=== PATIENT | male | born 1970 | race Caucasian/White ===

== ENCOUNTER 2016-08-19 18:06 | Inpatient (IN) | payer MEDICAID ==
[~2016-08-19] VITALS: Ht 172.7 cm; Wt 61.5 kg
[2016-08-19] MEDS ORDERED: INSU100V8 SQ (18:27)
[2016-08-19] MEDS ORDERED: GLIP5TAB10 PO (18:27)
[2016-08-19] MEDS ORDERED: LISI2.5T PO (18:27)
[2016-08-19] MEDS ORDERED: LISI5TAB7 PO (18:27)
[2016-08-19] MEDS ORDERED: INSU100C SQ-INSULIN (18:27)
[2016-08-19] MEDS ORDERED: SODIUM CHLORIDE 0.9% 1,000ML IVBOLUS ONE ×3 (18:30→19:30)
[2016-08-19] MEDS ORDERED: SODIUM CHLORIDE FLUSH 10ML SYR IVF ONE (18:30)
[2016-08-19 18:51] LABS: ASPARTATE AMINO TRANSFERASE 16 U/L (15-37); BLOOD UREA NITROGEN 42 mg/dL (7-18)
[2016-08-19 18:52] LABS: PH, VENOUS 6.891 pH (7.320-7.420)
[2016-08-19 19:01] LABS: DIFF TOTAL CELLS COUNTED 100 CELL DIFF
[2016-08-19 19:03] LABS: VERIFY COUNTS? YES
[2016-08-19] MEDS ORDERED: SODIUM BICARBONATE 1 MEQ/ML, 50ML VIAL ONE (19:14)
[2016-08-19] MEDS ORDERED: CALCIUM CHLORIDE 10%, 10ML SYR ONE (19:15)
[2016-08-19] MEDS ORDERED: REGULAR INSULIN 62.5 UNITS in SODIUM CHLORIDE 0.9% 249.375 ML IV PRN (19:30)
[2016-08-19] MEDS ORDERED: CALCIUM CHLORIDE 10%, 10ML SYR IVPush ONE (19:30)
[2016-08-19] MEDS ORDERED: PIPERACILLIN/TAZO/PMX 4.5GM 100 ML IVPB ONE (19:30)
[2016-08-19] MEDS ORDERED: SODIUM BICARB 8.4%, 50ML SYRINGE IVPush ONE (19:30)
[2016-08-19] MEDS ORDERED: SODIUM CHLORIDE 0.9% 1,000 ML IV ONE (20:18)
[2016-08-19] MEDS ORDERED: SODIUM CHLORIDE FLUSH 10ML SYR IVF PRN (20:30)
[2016-08-19] MEDS ORDERED: SODIUM CHLORIDE 0.9% 1,000 ML IV SCH (20:37)
[2016-08-19] MEDS ORDERED: TRAZODONE 50MG TABLET PO PRN (21:00)
[2016-08-19] MEDS ORDERED: BISACODYL 10 MG SUPP PR PRN (21:00)
[2016-08-19] MEDS: LISINOPRIL 5 MG TABLET PO SCH (21:00)
[2016-08-19] MEDS ORDERED: ACETAMINOPHEN 325 MG TABLET PO PRN (21:00)
[2016-08-19] MEDS ORDERED: ONDANSETRON 2MG/ML, 2ML IVPush PRN (21:00)
[2016-08-19] MEDS ORDERED: LABETALOL 5MG/ML, 20ML IVPush PRN (21:00)
[2016-08-19] MEDS ORDERED: DOCUSATE 100 MG CAPSULE PO PRN (21:00)
[2016-08-19] MEDS ORDERED: POLYETHYLENE GLYCOL 17 GM PACKET PO PRN (21:00)
[2016-08-19] MEDS: NICOTINE 14MG/24 HR PATCH.TD24 TD SCH (21:00)
[2016-08-19 22:20] VITALS: BP 121/81
[2016-08-19] MEDS: HEPARIN 5,000 UNITS/ML, 1ML SQ SCH (22:33)
[2016-08-19 22:40] LABS: BLOOD UREA NITROGEN 36 mg/dL (7-18)
[2016-08-19 22:50] VITALS: BP 119/79
[2016-08-20] MEDS: D5%-0.45% NACL 1,000 ML IV SCH ×2 (00:53→06:04)
[2016-08-20] MEDS ORDERED: REGULAR INSULIN 62.5 UNITS in SODIUM CHLORIDE 0.9% 249.375 ML IV PRN ×2 (01:00→07:07)
[2016-08-20 01:57] LABS: BLOOD UREA NITROGEN 31 mg/dL (7-18)
[2016-08-20 04:00] VITALS: BP 100/64
[2016-08-20 05:00] LABS: BLOOD UREA NITROGEN 27 mg/dL (7-18)
[2016-08-20 05:11] LABS: ASPARTATE AMINO TRANSFERASE 15 U/L (15-37)
[2016-08-20 05:56] LABS: PATH.CAST-FLAG NOT PRESENT; SPERM-FLAG NOT PRESENT; SRC-FLAG NOT PRESENT; XTAL-FLAG NOT PRESENT; YLC-FLAG NOT PRESENT
[2016-08-20] MEDS: HEPARIN 5,000 UNITS/ML, 1ML SQ SCH ×3 (06:07→21:00)
[2016-08-20 08:59] LABS: BLOOD UREA NITROGEN 25 mg/dL (7-18)
[2016-08-20] MEDS ORDERED: SODIUM PHOSPHATE 20 MMOL in SODIUM CHLORIDE 0.9% 500 ML IV ONE (09:00)
[2016-08-20] MEDS: LISINOPRIL 5 MG TABLET PO SCH ×2 (11:07→21:00)
[2016-08-20] MEDS: INSULIN DETEMIR 100 UNITS/ML, PEN SQ-INSULIN SCH (12:29)
[2016-08-20 12:53] LABS: BLOOD UREA NITROGEN 23 mg/dL (7-18)
[2016-08-20 16:19] LABS: BLOOD UREA NITROGEN 23 mg/dL (7-18)
[2016-08-20] MEDS ORDERED: INSULIN ASPART 100 UNITS/ML, PEN ONE (16:52)
[2016-08-20] MEDS ORDERED: GLUCAGON 1 MG IM PRN (17:00)
[2016-08-20] MEDS ORDERED: DEXTROSE 50%, 50ML SYRINGE IVPush PRN (17:00)
[2016-08-20] MEDS ORDERED: DEXTROSE 4 GM TAB.CHEW PO PRN (17:00)
[2016-08-20] MEDS: INSULIN ASPART 100 UNITS/ML, PEN SQ-INSULIN SCH ×2 (17:00→21:00)
[2016-08-20 20:43] VITALS: BP 95/85
[2016-08-20] MEDS: NICOTINE 14MG/24 HR PATCH.TD24 TD SCH (21:00)
[2016-08-20] MEDS: SODIUM CHLORIDE FLUSH 10ML SYR IVF SCH (21:00)
[2016-08-20] MEDS ORDERED: LABETALOL 5MG/ML, 20ML IVPush PRN (23:34)
[2016-08-21] MEDS ORDERED: D5%-0.45% NACL 1,000 ML IV SCH (01:00)
[2016-08-21] MEDS ORDERED: REGULAR INSULIN 62.5 UNITS in SODIUM CHLORIDE 0.9% 249.375 ML IV PRN (01:00)
[2016-08-21 01:22] VITALS: BP 106/62
[2016-08-21 04:55] LABS: BLOOD UREA NITROGEN 17 mg/dL (7-18)
[2016-08-21] MEDS: HEPARIN 5,000 UNITS/ML, 1ML SQ SCH (05:00)
[2016-08-21] MEDS: INSULIN ASPART 100 UNITS/ML, PEN SQ-INSULIN SCH ×2 (07:00→12:19)
[2016-08-21 07:36] VITALS: BP 95/50
[2016-08-21] MEDS: SODIUM CHLORIDE FLUSH 10ML SYR IVF SCH (08:13)
[2016-08-21] MEDS: INSULIN DETEMIR 100 UNITS/ML, PEN SQ-INSULIN SCH (08:13)
[2016-08-21] MEDS: LISINOPRIL 5 MG TABLET PO SCH (08:14)
[2016-08-21] MEDS ORDERED: INSU100V8 SQ (08:15)
[2016-08-21] MEDS ORDERED: INSU100C SQ-INSULIN (08:15)
== END 2016-08-21 12:33 | disposition home or self-care (01) | DRG 638 ==
LOC: ED 20:01 → EDIP 20:18 → CCU 21:48 → 3NW 08-20 20:18
PROVIDERS: ADMIT Internal Medicine; ATTEND Internal Medicine
DX: E10.10 Type 1 diabetes mellitus with ketoacidosis without coma (principal); N17.9 Acute kidney failure, unspecified; E87.1 Hypo-osmolality and hyponatremia; D72.828 Other elevated white blood cell count; E78.5 Hyperlipidemia, unspecified; E83.39 Other disorders of phosphorus metabolism; E87.6 Hypokalemia; F17.210 Nicotine dependence, cigarettes, uncomplicated; E83.42 Hypomagnesemia; M54.9 Dorsalgia, unspecified; Z79.4 Long term (current) use of insulin; Z79.84 Long term (current) use of oral hypoglycemic drugs; Z79.899 Other long term (current) drug therapy
CPT/HCPCS: 36415; 71010; 80048; 80053; 81001; 82010; 82803; 82962; 83036; 83605; 83735; 84100; 84145; 84439; 84443; 85025; 87040; 87081; 93005; 96361; 96365; 96366; 96368; 96375; J1644; J1815; J2543; J7030; J7040; J7050